=== PATIENT | male | born 1960 | race Caucasian/White ===

== ENCOUNTER 2024-08-31 06:45 | Day surgery (SDC) | payer OTHER ==
[2024-08-28 14:42] LABS: Hematocrit 42.2 % (39.6-49.0); Hemoglobin 14.4 g/dL (13.6-17.9); MCV 94.5 fL (80-100); RBC Red Blood Cell Count 4.47 M/uL (4.33-5.43)
[2024-08-28 14:43] LABS: Absolute Basophils 0.1 K/uL (0-0.5); Absolute Eosinophils 0.3 K/uL (0-0.5); Absolute Lymphocytes (CBC) 1.6 K/uL (0.7-4.9); Absolute Monocytes 1.2 K/uL (0.1-1.3); Basophils % 0.7 % (0-1.3); Eosinophils % 3.1 % (0-4.4); MCH 32.2 pg (27.0-35.0); MCHC 34.1 g/dL (32.0-36.0); MPV 7.2 fL (7.6-11.3); Monocytes % 13.5 % (3.3-12.3); Neutrophils % 65.7 % (41.7-73.7); Platelets 267 thou/uL (152-406); Red Cell Distribution Width 13.4 % (12.1-15.2)
[2024-08-28 14:51] LABS: PT Prothrombin Time 11.6 SECONDS (10-13.0); PTT, Activated Partial Thromb 31.5 SECONDS (27.2-37.4); Protime INR 1.02
[2024-08-28 15:04] LABS: Anion Gap 10.1 mEq/L (5.0-15.0); Potassium 4.1 mEq/L (3.5-5.1)
--- NOTE | 2024-08-29 12:20 | EKG ---
Test Date: 2024-08-28 Test Time: 14:31:21 Java Designer: LISA MEASUREMENT RESULTS: Intervals: Rate: 79 MT: 176 QRSD: 94 QT: 354 QTc: 405 [place]: P: 72 MT: 176 QRS: 2 T: 63 INTERPRETIVE STATEMENTS: Normal sinus rhythm Normal ECG No previous ECG available for comparison Electronically Signed On 08-29-24 12:19:16 CDT by Trung Lebron
[2024-08-31] MEDS: Ringers Lactate 1,000 ML IV ONE (07:14)
[2024-08-31] MEDS: OXYMETAZOLINE HCL 0.05% 30ML NAS ONE (07:17)
[2024-08-31] MEDS ORDERED: OXYMETAZOLINE HCL 0.05% 30ML NAS ONE (07:22)
[2024-08-31] MEDS ORDERED: OFLOXACIN OPH 0.3%-5 ML BTL ONE (07:22)
[2024-08-31] MEDS ORDERED: LIDOCAINE HCL/EPINEPHRINE 20 ML MDV ONE (07:23)
[2024-08-31] MEDS ORDERED: LIDOCAINE 1% MPF 5 ML VIAL ONE (07:31)
[2024-08-31] MEDS ORDERED: FENTANYL CITR 100 MCG/2 ML ONE (07:32)
[2024-08-31] MEDS ORDERED: propofoL 200 MG/20 ML VIAL IV ONE (07:32)
[2024-08-31] MEDS ORDERED: MIDAZOLAM HCL 2 MG/2 ML INJ ONE (07:33)
--- NOTE | 2024-08-31 09:00 | P.OP ---
Date of Service: 08/31/24 Preoperative diagnosis: Acute otitis media with TM rupture of the left ear with resulting chronic otitis media in the left ear. 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 Postoperative diagnosis: Same Procedure: Left myringotomy and tympanostomy tube placement, diagnostic nasal endoscopy Surgeon: Tash Castellano MD Hand Tile Maker: None Anesthesia: General via LMA Estimated blood loss: Nil Fluids/blood products: None Specimen: None Implants: Paparella type I tubes, left side only Findings: Mild seromucous middle ear fluid, left ear. Healed inferior turbinate reduction. No concerning or worrisome lesions of the nasopharynx. Indication: The patient presented with a history of bilateral sensorineural hearing loss with worsening left hearing and ear drainage. He was managed medically and found to have persistent left middle ear fluid with mixed hearing loss despite maximal medical therapy. Due to the curvature of the ear canal, the patient elected for procedure in the operating room Details of operation: The patient was brought to the operating room and placed under general anesthesia via laryngeal mask airway. The left ear was visualized under the operating microscope with assistance of an ear speculum. No significant cerumen or drainage was noted in the canal though the canal was narrow and tortuous. A myringotomy incision was made in the posterior -inferior quadrant and seromucoid fluid was aspirated from the middle ear space. A Paparella type I tube was positioned across the incision using an alligator forcep and pick. The microscope was removed from the field and the rigid endoscope fitted with camera was prepared. A 0 degree endoscope was used to perform bilateral nasal endoscopy. The patient was noted to have well-healed to significant inferior turbinate resection. The middle turbinate and middle meatus were unremarkable. The sphenoethmoid recesses were unremarkable. The nasopharynx demonstrated suspicion for adenoidectomy scar. After suctioning of secretions there was no evidence of significant abnormality in regards to lesion, mass or ulcerations. A 30 degree endoscope was used for better visualization of the eustachian tube openings. No significant mass or tumor was noted. Following photodocumentation the procedure was concluded. All counts were confirmed correct by the operating room staff and the patient was returned to care of anesthesia for awakening extubation in the operating room which proceeded without difficulty. Disposition the patient will be discharged home later today in the care of their family and follow-up with Dr. Castellano's office in approximately 1 to 2 weeks. A prescription for ciprofloxacin dexamethasone eardrops was sent to the pharmacy to be used only in case of otorrhea. Postoperative plan of care includes routine monitoring in the clinic every [address] Castellano or her carey cash. If the patient develops drainage from the ears, they can be treated with office visit for suctioning and/or prescription of antibiotic drops or combination steroid antibiotic drops. The tubes are expected to extrude within a 2-year timeframe. If not spontaneously extruded, removal of the tubes would be discussed with the family.
[2024-08-31 09:37] VITALS: BP 141/72; TEMP 97.5; O2SAT 94
== END 2024-08-31 09:42 | disposition home or self-care (01) ==
LOC: OR 06:45
PROVIDERS: ATTEND Otolaryngology
PROC: 099670Z Drainage of Left Middle Ear with Drainage Device, Via Natural or Artificial Opening (ICD-10-PCS; principal; 2024-08-31 08:15)
PROC: 09JK8ZZ Inspection of Nasal Mucosa and Soft Tissue, Via Natural or Artificial Opening Endoscopic (ICD-10-PCS; 2024-08-31 08:15)
DX: H66.12 Chronic tubotympanic suppurative otitis media, left ear (principal); H90.72 Mixed conductive and sensorineural hearing loss, unilateral, left ear, with unrestricted hearing on the contralateral side; H66.92 Otitis media, unspecified, left ear
CPT/HCPCS: 93005; 85025; 80048; 36415; 85610; 85730; 69436; 31231; J2704; J2003; J2250; J3010; J7120